=== PATIENT | male | born 1945 | race Two or more races ===

== ENCOUNTER 2024-10-04 14:19 | Emergency (ER) | payer MEDICARE, OTHER ==
[~2024-10-04] VITALS: Ht 160 cm; Wt 70.0 kg
--- NOTE | 2024-10-04 17:20 | DVH ---
XY R HAND 3 VIEW XRAY, INDICATION: hand injury TECHNICAL DATA: Frontal, oblique and lateral views were obtained of the right hand. COMPARISON: None FINDINGS: No fracture is identified. Joint spaces are maintained. Alignment is anatomic. 8 mm linear foreign pastor dy in the dorsum of the hand soft tissue. IMPRESSION: No acute fracture or dislocation of the right hand. 8 mm linear foreign body in the dorsum of the hand soft tissue.
[2024-10-04 18:25] VITALS: BP 107/69; PULSE 62; RESP 13; TEMP 99.4; O2SAT 95
--- NOTE | 2024-10-04 20:11 | ED.PDOC ---
Back pain HPI HPI Comments Patient states that he had fallen down off a rolling chair. Had no loss of consciousness from the fall and got a left hand laceration with bleeding controlled and dressing clean and intact. Bruising is also present around laceration. Patient has +pulse, +motor, +sensory, and immediate cap refill on upper extremities. Chief Complaint: Laceration Time Seen by MD: 15:19 Reviewed Notes: Nurses Notes, Medications, Allergies Allergies: Coded Allergies: NO KNOWN ALLERGIES (Unverified , 10/04/24) Information Source: Patient Mode of Arrival: Ambulatory X-Ray, Labs, Meds, VS Vital Signs Date Time Temp Pulse Resp B/P (MAP) Pulse Ox O2 Delivery O2 Flow Rate FiO2 10/04/24 18:25 62 13 95 Nasal Cannula 2.0 10/04/24 18: 99.4 62 13 107/69 (82) 95 99.4 10/04/24 14:52 97.9 84 20 135/75 (95) 94 97.9 Departure 1 Departure Time of Disposition: 20:10 Impression: Primary Impression: Contusion of right hand, initial encounter Additional Impression: Superficial abrasion Disposition: 01 HOME / SELF CARE / HOMELESS Condition: Stable Discharged With: Significant Other Critical Care Note Critical Care Time?: No Stability Stability form required: MABEL Roman October 04, 2024 20:11
== END 2024-10-04 20:32 | disposition home or self-care (01) ==
LOC: ER 14:39
DX: S60.221A Contusion of right hand, initial encounter (principal); W07.XXXA Fall from chair, initial encounter; Y93.89 Activity, other specified; Y92.89 Other specified places as the place of occurrence of the external cause; Y99.8 Other external cause status
CPT/HCPCS: 73130